=== PATIENT | male | born 1950 | race Caucasian/White ===

== ENCOUNTER 2018-07-12 09:30 | Inpatient (IN) | payer MEDICARE, BC ==
[2018-07-09 16:15] VITALS: BMI 31.7
[2018-07-12] VITALS (25 sets, daily range): BP systolic 104–125; BP diastolic 54–74; PULSE 71–100; RESP 16–25; Ht 175.3 cm; Wt 95.8 kg
[~2018-07-12] VITALS: Ht 175.3 cm; Wt 95.8 kg
--- NOTE | 2018-07-12 06:06 | HPN ---
Date/Time of Note Date/Time of Note DATE: 07/12/18 TIME: 06:06 Interval H&P Admission Note Pt. seen H&P reviewed: No system changes BRENNA PAZ MD Jul 12, 2018 06:06
--- NOTE | 2018-07-12 06:09 | OPR ---
Date/Time of Note Date/Time of Note DATE: 07/12/18 TIME: 06:06 Operative Report Procedure Date: Jul 12, 2018 Preoperative Diagnosis Right shoulder severe arthritis Postoperative Diagnosis 1. Right shoulder secondary arthritis 2. Massive, unrepairable rotator cuff tear 3. Right shoulder acromioclavicular joint arthritis Operation/Procedure Performed 1. Right reverse total shoulder replacement 2. Right shoulder open distal clavicle excision 3. Right shoulder PRP injection Surgeon see signature line Architectural Sales Consultant Gerald Veliz DO Second Architectural Sales Consultant: АЛЕКСАНДР HOFFMAN PA-C Anesthesia Type: general Estimated Blood Loss: 100 - 150 ml's Transfusion none Specimen None Grafts/Implants See op note Complications none Pt Condition Post Procedure: stable Disposition: PACU Procedure Description CONTROL CLERK REPAIRS SURGEON: Gerald Veliz DO was asked to be present for this case at my request. Assistance was necessary as a result of the highly technical nature of this operation. When performing an open total shoulder replacement, it is critical to have a trained library media assistant who is an expert in handling the extremity and assisting the surgeon in tasks such as manipulation of the arm, protection of the neurovascular structures and positioning the implants. This assistance cannot be performed by a senior maintenance technician, as it is considered an integral part of the procedure and the library media assistant should be compensated for their time. PROCEDURE IN DETAIL: Following the administration of general anesthesia supp lemented with a peripheral nerve block for postoperative pain control, the patient was examined under anesthesia. Examination of the right shoulder revealed very significant stiffness including a forward flexion of about 80 degrees abduction 60 degrees maximal external rotation 55 degrees with severe crepitus. There was a significant prominence superiorly as well. The patient was then placed in the beach chair position. The right forearm was prepped and 60 cc of blood were drawn using a 60 cc syringe coated with anticoagulant. The blood was harvested from the patient and given to the patient account representative who prepared PRP concentrate. Sterile prep and drape of the shoulder was then undertaken. An extended deltopectoral incision was then carried through the interval exposing the conjoined tendon and retracting it medially. Sterile prep and drape was then undertaken. An extended deltopectoral incision was then carried through the interval exposing the conjoined tendon and retracting it medially. The superior aspect of the acromioclavicular joint was then identified. The AC capsule was then incised from medial to lateral and the distal clavicle skeletonized for a distance of 10 mm. Severe arthritic changes were noted. A distal clavicular excision was then performed decompressing the joint by about 10 mm. The capsule was irrigated and closed using #2 sutures. The deltopectoral interval was then identified once again. The subscapularis was noted to be partially disrupted superiorly. Severe arthritic changes were noted with very large peripheral osteophytes. The superior rotator cuff was torn and retracted and the prior sutures from the repair identified laterally. 1 of the anchors was removed. The biceps tendon was significantly frayed and distorted. The intra-articular portion was eased to the bicipital groove with 2 #2 sutures. Solid fixation was obtained. The intra-articular portion was resected. A humeral head osteotomy was then created in the appropriate degree of version and inclination. The humerus was retracted and the glenoid was exposed. Peripheral osteophytes were removed and a complete capsulectomy performed. The central canal of the glenoid was then entered and prepared for a size standard Depuy baseplate. A standard Depuy baseplate was then applied with four peripheral screws and solid fixation. A 38 mm glenosphere was then applied, with solid fixation. The humerus was then reamed and prepared for a 16 Milliman humeral component with a standard metaphyseal component. The actual components were implanted with solid fixation along with a 6 mm liner following thorough irrigation of the shaft and infiltration of the PRP solution.. The arm was taken through full range of motion with no evident instability. The joint was then thoroughly irrigated, the deep tissues were approximated using #1 suture followed by closure of the deep layer using 2-0 Monocryl. The skin was closed using 4-0 Monocryl suture, and a Prenio dressing. An Ultrasling was then applied. The patient was awakened and transported to the recovery room in stable condition. Estimated blood loss for this procedure was 200 mm. Radiographs will be obtained in the recovery room. BRENNA PAZ MD Jul 12, 2018 06:09
[~2018-07-12 09:30] MED LIST: BUPIVACAINE 0.5% (SDV) 30 ML, morphine SULFATE (PF) 8 MG, EPINEPHrine 0.3 MG, KETOROLAC... IRR SCH; CEFAZOLIN 2 GM/50 ML (PMX) 50 ML IVPB SCH; DEXAMETHASONE 1 MG TAB PO SCH; GABAPENTIN 300 MG CAP PO SCH; SEVOFLURANE 15 MIN ONE; TRANEXAMIC ACID 1,000 MG in DEXTROSE 5% 100 ML IVPB SCH
[2018-07-12] MEDS ORDERED: TERA1CAP3 PO (10:57)
[2018-07-12] MEDS ORDERED: SIMV40TA2 PO (10:57)
[2018-07-12] MEDS ORDERED: FINA5TAB4 PO (10:58)
[2018-07-12] MEDS ORDERED: BRIM15DR2 BOTH EYES (10:59)
[2018-07-12] MEDS ORDERED: BIMA2.5D BOTH EYES (10:59)
[2018-07-12] MEDS ORDERED: DORZ10DR5 BOTH EYES (11:01)
[2018-07-12] MEDS ORDERED: ROCURONIUM 50 MG INJ ONE (12:28)
[2018-07-12] MEDS ORDERED: CEFAZOLIN 1 GM INJ ONE (12:28)
[2018-07-12] MEDS ORDERED: MIDAZOLAM 1 MG/ML 2 ML INJ ONE (12:28)
[2018-07-12] MEDS ORDERED: PROPOFOL 20 ML ONE (12:28)
[2018-07-12] MEDS ORDERED: ROPIVACAINE 0.5 % 30 ML VIAL ONE (12:29)
[2018-07-12] MEDS ORDERED: THROMBIN 5000 UNIT VIAL ONE ×2 (13:51→14:40)
[2018-07-12] MEDS ORDERED: CA CHLORIDE 10% 10 ML SYRINGE ONE (13:51)
[2018-07-12] MEDS ORDERED: POLYMYXIN/BACITRACIN 1L IRRIG ONE (13:51)
--- NOTE | 2018-07-12 14:06 | PREAC ---
Date/Time of Note Date/Time of Note DATE: 07/12/18 TIME: 14:04 Anesthesia Eval and Record Evaluation Time Pre-Procedure Interview DATE: 07/12/18 TIME: 14:04 Age 67 Sex male NPO: 8 hrs Preoperative diagnosis Right Shoulder OA Planned procedure Right Total Shoulder Replacement Past Medical History Past Medical History: Includes Cardio: Dyslipidemia Musculoskeletal: Osteoarthritis Renal: BPH Surgery & Anesthesia Issues No known issue Meds Anticoagulation: No Beta Carmelo within 24 hr: No Reason Beta Carmelo not given: Pt. not on B-Carmelo Reported Medications Dorzolamide Hcl* (Dorzolamide Hcl*) 10 Ml Drops, 1 DROP BOTH EYES TID, #1 EA 07/12/18 Bimatoprost* (Lumigan*) 0.01%-2.5 Ml Opht Drops, 1 DROP BOTH EYES HS, EA 07/12/18 Brimonidine Tartrate* (Alphagan P*) 0.1%-15 Ml Opht Drops, 1 DROP BOTH EYES Q8, #1 EA 07/12/18 Finasteride* (Finasteride*) 5 Mg Tablet, 5 MG PO QHS, TAB 07/12/18 Terazosin Hcl* (Terazosin Hcl*) 1 Mg Capsule, 1 MG PO HS, CAP 07/12/18 Simvastatin* (Zocor*) 40 Mg Tablet, 40 MG PO QHS, #30 TAB 07/12/18 Current Medications Cefazolin Sodium/ Dextrose 50 ml @ 100 mls/hr PRE-OP IVPB ; Start 07/12/18 at 07:00; Stop 07/12/18 at 16:00 Tranexamic Acid 1000 mg/Dextrose 110 ml @ 200 mls/hr Pre-op IVPB ; Start 07/12/18 at 07:00; Stop 07/12/18 at 16:00 Bupivacaine HCl/ Morphine Sulfate/ Epinephrine/ Ketorolac Tromethamine/ Clonidine/Sodium Chloride/ Vancomycin HCl INTRA-OP IRR ; Start 07/12/18 at 07:00; Stop 07/12/18 at 16:00 Dexamethasone (Decadron) 2 mg PREOP PO Last administered on 07/12/18at 11:57; Admin Dose 2 MG; Start 07/12/18 at 07:00; Stop 07/12/18 at 16:00 Gabapentin (Neurontin) 300 mg ONCE PO Last administered on 07/12/18at 11:57; Admin Dose 300 MG; Start 07/12/18 at 07:00; Stop 07/12/18 at 16:00 Meds reviewed: Yes Allergies Coded Allergies: No Known Allergy (Unverified , 07/12/18) Allergies Reviewed: Yes Labs/Studies Labs Reviewed: Reviewed by anesthesiologist test: N/A Studies: ECG (n/a), CXR (n/a) Pre-procedure Exam Last vitals Vital Signs Date Temp Pulse Resp B/P (MAP) Pulse Ox O2 O2 Flow FiO2 Time Delivery Rate 07/12/18 96.3 71 16 111/54 96 Room Air 10:28 (73) Airway: Adequate mouth opening, Adequate thyromental dist Mallampati: Mallampati II Teeth: Normal Lung: Normal Heart: Normal ASA Physical Status ASA physical status: 2 Emergency: None Planned Anesthetic General/MAC: ETT Nerve block: Brachial plexus (right) Planned Pain Management Single shot nerve block, Parenteral pain med Pre-operative Attestations Prior to commencing anesthesia and surgery, the patient was re-evaluated, there was verification of: *The patient's identity *The results of appropriate recent lab work and preoperative vital signs *The above evaluation not changing prior to induction *Anesthetic plan, risk benefits, alternative and complications discussed with patient/family; questions answered; patient/family understands, accepts and wishes to proceed. MADELEINE NAZARIO MD Jul 12, 2018 14:06
[2018-07-12] MEDS ORDERED: DEXAMETHASONE 4 MG/ML 5 ML INJ ONE (14:19)
[2018-07-12] MEDS ORDERED: ONDANSETRON 4 MG INJ ONE (14:19)
[2018-07-12] MEDS ORDERED: METOCLOPRAMIDE 10 MG INJ ONE (14:19)
[2018-07-12] MEDS ORDERED: SCOPOLAMINE 1.5 MG PATCH ONE (14:19)
[2018-07-12] MEDS ORDERED: KETOROLAC 30 MG INJ ONE (14:19)
[2018-07-12] MEDS ORDERED: hydrALAzine 20 MG INJ IV PRN (14:30)
[2018-07-12] MEDS ORDERED: FENTAnyl 50 MCG/ML VIAL IV PRN ×3 (14:30)
[2018-07-12] MEDS ORDERED: HYDROmorphONE 1 MG/5 ML IV SYRINGE IV PRN ×3 (14:30)
[2018-07-12] MEDS ORDERED: EPHEDrine SULFATE 50 MG/5 ML SYG IV PRN (14:30)
[2018-07-12] MEDS ORDERED: MEPERIDINE 25 MG INJ IV PRN (14:30)
[2018-07-12] MEDS ORDERED: METOCLOPRAMIDE 10 MG INJ IV PRN (14:30)
[2018-07-12] MEDS ORDERED: DIPHENHYDRAMINE 50 MG INJ IV PRN ×2 (14:30→16:00)
[2018-07-12] MEDS ORDERED: ONDANSETRON 4 MG INJ IV PRN ×2 (14:30→16:00)
[2018-07-12] MEDS ORDERED: LABETALOL HCL 20MG INJ IV PRN (14:30)
[2018-07-12] MEDS ORDERED: OXYCODONE/ACETAMINOPHEN (5/325) TAB PO PRN ×2 (14:30)
[2018-07-12] MEDS ORDERED: POLYMYXIN/BACITRACIN 1L IRRIG IRR ONE (14:38)
[2018-07-12] MEDS ORDERED: PHENYLephrine (100 MCG/ML) 10ML SYG ONE ×2 (14:45→15:09)
[2018-07-12] MEDS ORDERED: NEOSTIGMINE 3 MG/3 ML SYRINGE ONE (15:54)
[2018-07-12] MEDS ORDERED: GLYCOPYRROLATE 0.4 MG INJ ONE (15:54)
[2018-07-12] MEDS ORDERED: LOPERAMIDE 2 MG CAP PO PRN (16:00)
[2018-07-12] MEDS ORDERED: HYDROmorphONE 1 MG/ML SYG IV PRN (16:00)
[2018-07-12] MEDS ORDERED: TRANEXAMIC ACID 1,000 MG in SOD CHLORIDE 0.9% 100 ML IVPB SCH (16:00)
[2018-07-12] MEDS ORDERED: oxyCODONE 5 MG TAB PO PRN ×3 (16:00)
[2018-07-12] MEDS ORDERED: MAGNESIUM HYDROXIDE 30ML CUP PO PRN (16:00)
[2018-07-12] MEDS ORDERED: NACL 0.9% 3 ML SYG IV SCH (16:00)
[2018-07-12] MEDS ORDERED: KETOROLAC 15 MG INJ IV PRN (16:00)
--- NOTE | 2018-07-12 16:11 | PAC ---
Date/Time of Note Date/Time of Note DATE: 07/12/18 TIME: 16:10 Post-Anesthesia Notes Post-Anesthesia Note Last documented vital signs Vital Signs Date Temp Pulse Resp B/P (MAP) Pulse Ox O2 O2 Flow FiO2 Time Delivery Rate 07/12/18 98.2 105 16 124/75 97 face mask 8 L 16:05 (83) 07/12/18 71 16 111/54 96 Room Air 10:28 (73) Activity: WNL Respiratory function: WNL Cardiovascular function: WNL Mental status: Baseline Pain reasonably controlled: Yes Hydration appropriate: Yes Nausea/Vomiting absent: Yes MADELEINE NAZARIO MD Jul 12, 2018 16:11
[2018-07-12] MEDS ORDERED: CEFAZOLIN 1 GM/50 ML (PMX) 50 ML IVPB ONE (16:56)
[2018-07-12] MEDS: DEXAMETHASONE 2 MG TAB PO SCH (17:55)
[2018-07-12] MEDS: ACETAMINOPHEN 500 MG TAB PO SCH (18:00)
[2018-07-12] MEDS: SENNA/DOCUSATE NA (8.6MG/50MG) TAB PO SCH (21:00)
[2018-07-12] MEDS: LATANOPROST 0.005% 2.5 ML OPH BOTH EYES SCH ×2 (21:00→21:42)
[2018-07-12] MEDS ORDERED: ATORVASTATIN 20 MG TAB PO SCH (21:00)
[2018-07-12] MEDS ORDERED: TERAZOSIN 1 MG CAP PO SCH (21:00)
[2018-07-12] MEDS ORDERED: FINASTERIDE 5 MG TAB PO SCH (21:00)
[2018-07-12] MEDS ORDERED: GABAPENTIN 300 MG CAP PO SCH (21:00)
[2018-07-12] MEDS ORDERED: ZOLPIDEM 5 MG TAB PO PRN (21:00)
[2018-07-12] MEDS: DORZOLAMIDE 2% 10 ML OPH BOTH EYES SCH (21:42)
[2018-07-12] MEDS: BRIMONIDINE 0.1% 5 ML OPH BOTH EYES SCH (21:42)
[2018-07-13] MEDS: ACETAMINOPHEN 500 MG TAB PO SCH ×3 (00:35→12:03)
[2018-07-13] MEDS: CEFAZOLIN 1 GM/50 ML (PMX) 50 ML IVPB SCH ×2 (00:35→09:48)
[2018-07-13] MEDS: DEXAMETHASONE 2 MG TAB PO SCH ×3 (00:35→12:03)
[2018-07-13 00:38] VITALS: BP 111/68; PULSE 86; RESP 18
[2018-07-13] MEDS: BRIMONIDINE 0.1% 5 ML OPH BOTH EYES SCH ×2 (06:05→14:00)
[2018-07-13] MEDS: DORZOLAMIDE 2% 10 ML OPH BOTH EYES SCH ×2 (06:06→12:03)
--- NOTE | 2018-07-13 06:07 | PN ---
Date/Time of Note Date/Time of Note DATE: 07/13/18 TIME: 06:06 Subjective Awake alert no complaints Objective Vitals Vital Signs Date Temp Pulse Resp B/P (MAP) Pulse Ox O2 O2 Flow FiO2 Time Delivery Rate 07/13/18 98.0 86 18 111/68 92 00:38 (82) 07/12/18 Nasal 20:18 Cannula 07/12/18 2.0 17:10 Intake and Output 07/12/18 07/12/18 07/13/18 1515:00 23:00 07:00 IntakeIntake Total 1610 ml 420 ml OutputOutput Total 50 ml 40 ml BalanceBalance 1560 ml 380 ml Wound clean and dry. Neurologically intact. No signs of DVT. Medications Medications Current Medications Latanoprost (Xalatan) 1 drop HS BOTH EYES Last administered on 07/12/18at 21:42; Admin Dose 1 DROP; Start 07/12/18 at 19:00 Brimonidine Tartrate (Alphagan P 0.1%) 1 drop Q8 BOTH EYES Last administered on 07/12/18at 21:42; Admin Dose 1 DROP; Start 07/12/18 at 22:00 Dorzolamide HCl (Trusopt) 1 drop TID BOTH EYES Last administered on 07/12/18at 21:42; Admin Dose 1 DROP; Start 07/12/18 at 21:00 Finasteride (Proscar) 5 mg QHS PO Last administered on 07/12/18at 21:35; Admin Dose 5 MG; Start 07/12/18 at 21:00 Terazosin HCl (Hytrin) 1 mg HS PO Last administered on 07/12/18at 21:35; Admin Dose 1 MG; Start 07/12/18 at 21:00 Atorvastatin Calcium (Lipitor) 20 mg DAILY@21 PO Last administered on 07/12/18at 21:34; Admin Dose 20 MG; Start 07/12/18 at 21:00 Cefazolin Sodium 50 ml @ 100 mls/hr Q8H IVPB Last administered on 07/13/18at 00:35; Admin Dose 100 MLS/HR; Start 07/13/18 at 01:00; Stop 07/13/18 at 17:29 Senna/Docusate Sodium (Senokot-S) 1 tab BID PO ; Start 07/12/18 at 21:00 Simethicone (Mylicon) 80 mg TID PRN PO DISTENSION/GAS/BLOATING; Start 07/12/18 at 16:00 Magnesium Hydroxide (Milk Of Mag) 30 ml BID PRN PO CONSTIPATION; Start 07/12/18 at 16:00 Loperamide HCl (Imodium Cap) 2 mg Q6H PRN PO DIARRHEA; Start 07/12/18 at 16:00 Dexamethasone (Decadron) 2 mg Q6 PO Last administered on 07/13/18at 00:35; Admin Dose 2 MG; Start 07/12/18 at 18:00; Stop 07/13/18 at 12:01 Gabapentin (Neurontin) 300 mg HS PO ; Start 07/12/18 at 21:00 Acetaminophen (Tylenol Tab) 500 mg Q6 PO Last administered on 07/13/18at 00:35; Admin Dose 500 MG; Start 07/12/18 at 18:00 Oxycodone HCl (Roxicodone) 15 mg Q4H PRN PO PAIN; Start 07/12/18 at 16:00 Oxycodone HCl (Roxicodone) 10 mg Q4H PRN PO PAIN; Start 07/12/18 at 16:00 Oxycodone HCl (Roxicodone) 5 mg Q4H PRN PO PAIN; Start 07/12/18 at 16:00 Hydromorphone HCl (Dilaudid) 1 mg Q4H PRN IV BREAKTHROUGH PAIN; Start 07/12/18 at 16:00 Ketorolac Tromethamine (Toradol) 15 mg Q6H PRN IV PAIN; Start 07/12/18 at 16:00 Ondansetron HCl (Zofran Inj) 4 mg Q6H PRN IV NAUSEA AND/OR VOMITING; Start 07/12/18 at 16:00 Diphenhydramine HCl (Benadryl) 25 mg Q6H PRN IV PRURITUS; Start 07/12/18 at 16:00 Zolpidem Tartrate (Ambien) 10 mg HS PRN PO INSOMNIA; Start 07/12/18 at 21:00 IV Flush (NS 3 ml) 3 ml per protocol IV ; Start 07/12/18 at 16:00 VTE Prophylaxis Risk [place] [facility] [place] risk: 2 SCD applied [place] [facility] [place] Yes Lines/Catheters IV Catheter Type: Saline Lock Brady in Place: No Assessment/Plan Assessment/Plan Assessment: Status post total shoulder Plan: Begin PT discharge after BRENNA PAZ MD Jul 13, 2018 06:07
--- NOTE | 2018-07-13 06:07 | DS ---
Date/Time of Note Date/Time of Note DATE: 07/13/18 TIME: 06:07 Discharge Summary Admission/Discharge Info Admit Date/Time Jul 12, 2018 at 10:19 Discharge Date/Time July 13, 2018 Discharge Diagnosis Shoulder arthritis Patient Condition: Good Hospital Course Admitted and underwent uncomplicated procedure. Postop day 1 discharge home after therapy Home Meds Reported Medications Dorzolamide Hcl* (Dorzolamide Hcl*) 10 Ml Drops, 1 DROP BOTH EYES TID, #1 EA 07/12/18 Bimatoprost* (Lumigan*) 0.01%-2.5 Ml Opht Drops, 1 DROP BOTH EYES HS, EA 07/12/18 Brimonidine Tartrate* (Alphagan P*) 0.1%-15 Ml Opht Drops, 1 DROP BOTH EYES Q8, #1 EA 07/12/18 Finasteride* (Finasteride*) 5 Mg Tablet, 5 MG PO QHS, TAB 07/12/18 Terazosin Hcl* (Terazosin Hcl*) 1 Mg Capsule, 1 MG PO HS, CAP 07/12/18 Simvastatin* (Zocor*) 40 Mg Tablet, 40 MG PO QHS, #30 TAB 07/12/18 Follow-up Plan 2 weeks Primary Care Provider Not On Staff Doctor BRENNA PAZ MD Jul 13, 2018 06:07
--- NOTE | 2018-07-13 06:07 | PDOCDIS ---
Discharge Instructions DIAGNOSIS Discharge Diagnosis Shoulder arthritis CONDITION [id number] Patient Condition: [id number] Good HOME CARE INSTRUCTIONS: [id number] Diet Instructions: [id number] Regular ACTIVITY: [id number] Activity Restrictions: [id number] Slowly Increase Activity Keep Limb Elevated [id number] Bathing Restrictions: [id number] Shower FOLLOW UP/APPOINTMENTS Follow-up Plan 2 weeks SCHOOL/WORK RELEASE May return to School/Work with: With Restrictions School/Work Release Comment: 5 pound tabletop usage BRENNA PAZ MD Jul 13, 2018 06:07
[2018-07-13 07:45] VITALS: BP 117/61; PULSE 82; RESP 20
[2018-07-13] MEDS: SENNA/DOCUSATE NA (8.6MG/50MG) TAB PO SCH (09:48)
== END 2018-07-13 14:18 | disposition home or self-care (01) | DRG 483 ==
LOC: REC 10:19 → MS1 21:46
PROVIDERS: ADMIT Orthopaedic Surgery; ATTEND Orthopaedic Surgery
PROC: 0PB90ZZ Excision of Right Clavicle, Open Approach (ICD-10-PCS; 2018-07-12)
PROC: 0RRJ00Z Replacement of Right Shoulder Joint with Reverse Ball and Socket Synthetic Substitute, Open Approach (ICD-10-PCS; principal; 2018-07-12 13:00)
DX: M19.011 Primary osteoarthritis, right shoulder (principal); M75.101 Unspecified rotator cuff tear or rupture of right shoulder, not specified as traumatic; E78.00 Pure hypercholesterolemia, unspecified
CPT/HCPCS: 86999; 88304; 88311; 97167; A4310; C1776; J0171; J0690; J0735; J1100; J1885; J2250; J2274; J2370; J2405; J2710; J2765; J2795; J3010; J3370